=== PATIENT | male | born 1985 | race Two or more races ===

== ENCOUNTER 2024-07-08 13:00 | Emergency (ER) | payer MEDICARE, MEDICAID, SELFPAY ==
[2024-07-08 13:08] VITALS: BP 150/93; PULSE 89; RESP 16; TEMP 36.8; O2SAT 96; BMI 26.9
--- NOTE | 2024-07-08 13:26 | EDNOTE_ITS ---
ED Medical Clearance RME/HPI General Stated complaint: MEDICAL CLEARANCE Time Seen by Provider: 07/08/24 13:04 Arrival date/time: 07/08/24 13:00 RME / HPI RME / HPI Narrative: 32-year-old male patient with significant history of mental health disorder, taking Abilify, came in for evaluation regarding medical clearance. 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 Patient told me that he wants to hurt himself. Denies any homicidal ideation. Denies any other complaints. Patient is ambulatory. Related Information Allergies Allergy/AdvReac Type Severity Reaction Status Date / Time NKA* Allergy Uncoded 03/16/13 21:34 Review of Systems Review of Systems Narrative Review of Systems: Review of system reviewed and within normal limits except mentioned in HPI ED Exam Narrative Physical exam: VITAL SIGNS: Reviewed. GENERAL APPEARANCE: Alert and interactive, follows commands, no acute distress, HEAD AND FACE: Non-traumatic. ENT: PERRL, pink conjunctivitis, eyelid no trauma, Mucous membrane moist. NECK: Supple, nontender, no nuchal rigidity. CHEST: No tenderness, no crepitus, no paradoxical movement, no retractions. LUNGS: Clear, well ventilated, symmetric, no rales, no wheezing, no ronchi, no stridor, good breath sounds bilaterally. HEART: Regular rate, regular rhythm, no murmur, no gallops. ABDOMEN: Soft, positive bowel sounds, nondistended, no guarding, nontender, no rebound, no masses, RECTAL: Deferred. GENITAL: Deferred. NEUROLOGICAL: Gross motor function intact sensory function intact, Appropriate for age. MUSCULOSKELETAL: low back nontender, full range of motion. EXTREMITIES: Multiple scratches noted on the left forearm volar aspect nontender, full range of motion. SKIN: Color pink, dry, no rash, no lacerations, no abrasions, no contusions. LYMPHATICS: Deferred. Course Quality Measures none Vital Signs Vital signs: Vital Signs Temperature 98.3 F 07/08/24 13:08 Pulse Rate 89 07/08/24 13:08 Respiratory Rate 16 07/08/24 13:08 Blood Pressure 150/93 H 07/08/24 13:08 Pulse Oximetry (%) 96 07/08/24 13:08 Oxygen Delivery Method Room Air 07/08/24 13:08 Medical Clearance MDM Narrative MDM Narrative:: 32-year-old male patient with significant history of mental health disorder, taking Abilify, came in for evaluation regarding medical clearance. 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 Patient told me that he wants to hurt himself. Denies any homicidal ideation. Denies any other complaints. Patient is ambulatory. Patient is medically cleared for incarceration, imaging workup is not at this time. Patient will be seen by a mental health also inside the group home. Patient's vital signs came back normal Patient data External records reviewed:: None Clinical information provided by:: patient Social determinants that could affect healthcare access:: mental health Patient has the following chronic illnesses:: Mental health disorder How is presenting disease/condition affected by chronic disease/condition?: exacerbated by Evaluation data The following diagnostics were reviewed and interpreted by me:: other (specify) (None) Lab and/or radiology exams considered but not ordered:: None Interpretation Summary: None Medications / Prescriptions Medications or Prescriptions considered but not ordered:: None none none Medication administrations:: None Consultations Consultation(s) initiated? (list below): No Diagnosis Medical Clearance Differential Diagnosis: other (Suicidal ideation, medical clearance, chronic schizophrenia) Most likely diagnosis given after review of the tests above:: Suicidal ideation, medical clearance for incarceration Admission Indicated Admission indicated?: not indicated Explain why admission is indicated or not indicated:: Medical cleared for incarceration Admission Request Was there a request for admission?: No Disposition Plan Disposition Plan: Discharge Discharge Attestation Discharge Attestation: Patient condition: Stable Discharge Plan Plan Patient Disposition: Senior Care/Court/Law Disposition Comment: Stable Problem List Clinical Impression: Medical clearance for incarceration, Suicidal ideation Patient/Caregiver Discharge Instructions Education Materials: Warning Signs of Suicide and ... Additional Instructions: Thank you for the opportunity for serving you today. You are stable for discharged . You are advised to: Follow-up with your PCP in 1 to 2 days once you get out of group home Return to ED for worsening of symptoms Increase oral fluids Continue taking your psych medications Print Language: Chinese Stand Alone Forms: Ara Award Info., Patient Portal Info Letter JESS/MALIHA Supervising Physician SIM Supervising Physician: MD Neto
== END 2024-07-08 13:47 ==
PROVIDERS: Emergency Provider Emergency Medicine
DX: Z02.89 Encounter for other administrative examinations (principal); R45.851 Suicidal ideations
CPT/HCPCS: 99281